=== PATIENT | male | born 1980 | race Caucasian/White ===

== ENCOUNTER 2017-12-15 03:30 | Emergency (ER) | payer SELFPAY ==
[2017-12-15] MEDS ORDERED: PROVENTIL IH ONE (03:54)
--- NOTE | 2017-12-15 06:15 | Emergency Department Report ---
HPI - General Chief Complaint: Adult Asthma Time Seen by Provider: 12/15/17 06:06 - [facility] HPI: Room 19 The patient is 37-year-old male presenting with a chief complaint of asthma exacerbation. Patient states around midnight developed wheezing and shortness of breath consistent with his asthma. Patient missed her cough is productive of clear sputum. Patient states she was administered nebulized by EMS and once here in the ED and is currently asymptomatic. Patient denies any other complaints Location: Lungs Duration: Constant since midnight Quality: Feels like asthma Severity: Moderate Modifying factors: [see above] Context: [see above] Mode of transportation: [not driving] ED Past Medical Hx - Past Medical History Previous Medical History?: Yes Hx Asthma: Yes - Surgical History Past Surgical History?: No - Family History Family history: no significant - Social History Smoking Status: Current Every Day Smoker (1/2 pack per day) Substance Use Type: None (denies illicit drug use), Alcohol (occasional) - Medications Home Medications: Home Medications Medication Instructions Recorded Confirmed Last Taken Type ALBUTEROL Inhaler (OR & NICU) 2 puff IH QID PRN #1 inhalation 12/15/17 Unknown Rx [Proair] Prednisone [predniSONE 10 mg 10 mg PO .TAPER #1 tab.ds.pk 12/15/17 Unknown Rx (6-Day Pack, 21 Tabs)] ED Review of Systems ROS: Stated complaint: RYAN Other details as noted in HPI Constitutional: no symptoms reported Eyes: denies: eye pain ENT: denies: throat pain Respiratory: cough, shortness of breath, wheezing Cardiovascular: denies: chest pain Endocrine: no symptoms reported Gastrointestinal: denies: abdominal pain Genitourinary: denies: dysuria Musculoskeletal: denies: back pain Neurological: denies: headache Physical Exam - Physical Exam Vital Signs: Vital Signs 12/15/17 12/15/17 03:44 04:06 Temperature 97.9 F Pulse Rate 102 H Pulse Rate [ 102 H Anterior Bilateral Throughout] Respiratory 18 Rate Respiratory 19 Rate [Anterior Bilateral Throughout] Blood Pressure 124/84 O2 Sat by Pulse 99 Oximetry Physical Exam: GENERAL: The patient is well-developed well-nourished male sitting on stretcher not appearing to be in acute distress. [] HEENT: Normocephalic. Atraumatic. Extraocular motions are intact. Patient has moist mucous membranes. NECK: Supple. Trachea midline CHEST/LUNGS: Clear to auscultation. There is no respiratory distress noted. HEART/CARDIOVASCULAR: Regular. There is no tachycardia. There is no gallop rub or murmur. ABDOMEN: Abdomen is soft, nontender. Patient has normal bowel sounds. There is no abdominal distention. SKIN: There is no rash. There is no edema. There is no diaphoresis. NEURO: The patient is awake, alert, and oriented. The patient is cooperative. The patient has normal speech MUSCULOSKELETAL:There is no evidence of acute injury. ED Course Vital Signs 12/15/17 12/15/17 03:44 04:06 Temperature 97.9 F Pulse Rate 102 H Pulse Rate [ 102 H Anterior Bilateral Throughout] Respiratory 18 Rate Respiratory 19 Rate [Anterior Bilateral Throughout] Blood Pressure 124/84 O2 Sat by Pulse 99 Oximetry ED Medical Decision Making - Differential Diagnosis acute asthma exacerbation Critical care attestation.: If time is entered above; I have spent that time in minutes in the direct care of this critically ill patient, excluding procedure time. ED Disposition Clinical Impression: Acute asthma exacerbation, Shortness of breath Disposition: DC-01 TO HOME OR SELFCARE Is pt being admited?: No Does the pt Need Aspirin: No Condition: Stable Instructions: Asthma (ED) Additional Instructions: Return to the emergency department immediately should you develop worsening symptoms, fever, inability to tolerate food or liquid or any other concerns. Prescriptions: ALBUTEROL Inhaler (OR & NICU) [Proair] 2 puff IH QID PRN #1 inhalation PRN Reason: Shortness Of Breath Prednisone [predniSONE 10 mg (6-Day Pack, 21 Tabs)] 10 mg PO .TAPER #1 tab.ds.pk Referrals: PRIMARY CARE, [Primary Care Provider] - 3-5 Days THEE REICH MD [Staff Physician] - 3-5 Days (Dr. Reich is a bicycle assembler. Please follow up with him for further evaluation) Time of Disposition: 06:12
[2017-12-15 06:40] VITALS: BP 135/85
== END 2017-12-15 06:28 | disposition home or self-care (01) ==
LOC: ED 03:30
DX: J45.21 Mild intermittent asthma with (acute) exacerbation (principal); F17.200 Nicotine dependence, unspecified, uncomplicated
CPT/HCPCS: 94640; 99282

== ENCOUNTER 2021-03-13 23:08 | Emergency (ER) | payer SELFPAY ==
[2021-03-13] MEDS ORDERED: ALBUTEROL 2.5 MG/3 ML NEBU IH ONE (23:18)
[2021-03-13] MEDS ORDERED: methylPREDNISolone Sod Succinate 125 MG/2 ML INJ IV ONE (23:18)
[2021-03-13] MEDS ORDERED: IPRATROPIUM 0.02% NEBU 2.5 ML IH ONE (23:18)
[2021-03-13 23:51] LABS: Basophils # (Auto) 0.1 K/mm3 (0.0-0.1); Basophils % (Auto) 0.7 % (0.0-1.8); Eosinophils # (Auto) 1.1 K/mm3 (0.0-0.4); Eosinophils % (Auto) 13.9 % (0.0-4.3); Hematocrit 42.7 % (35.5-45.6); Hemoglobin 14.1 gm/dl (11.8-15.2); Lymphocytes # (Auto) 1.1 K/mm3 (1.2-5.4); Lymphocytes % (Auto) 13.7 % (13.4-35.0); Mean Corpuscular HGB Conc 33 % (32-34); Mean Corpuscular Volume 87 fl (84-94); Monocytes # (Auto) 0.7 K/mm3 (0.0-0.8); Monocytes % (Auto) 8.6 % (0.0-7.3); Platelet Count 279 K/mm3 (140-440)
[2021-03-14 00:13] LABS: Albumin 4.6 g/dL (3.9-5); Calcium 9.6 mg/dL (8.4-10.2)
--- NOTE | 2021-03-14 01:28 | XRay Report ---
CHEST 1 VIEW 03/14/2021 12:48 AM INDICATION / CLINICAL INFORMATION: Cough, dyspnea. COMPARISON: None available. FINDINGS: SUPPORT DEVICES: None. HEART / MEDIASTINUM: No significant abnormality. LUNGS / PLEURA: No significant pulmonary or pleural abnormality. No pneumothorax. Increased lucencies in bilateral lung bases consistent with bullous disease. ADDITIONAL FINDINGS: No significant additional findings. IMPRESSION: 1. No acute cardiopulmonary abnormality. Bullous disease within the bilateral lung apices. Signer Name: Melvin Vasquez DO Signed: 03/14/2021 1:23 AM Workstation Name: [id number]
--- NOTE | 2021-03-14 02:00 | Emergency Department Report ---
- General Chief Complaint: Adult Asthma Stated Complaint: ASTHMA Source: patient Mode of arrival: Ambulatory Limitations: No Limitations - History of Present Illness Initial Comments: Patient is a 41 yo AA male with a history of asthma and heavy tobacco abuse who presented to the ED with c/o acute onset persistent nasal and sinus congestion, dry cough, wheezing, shortness of breath for the last 1 week despite using his regular albuterol nebulizers at home. The also stated that he still smokes cigarettes and trying very hard to quit. The stated that his symptoms are similar to his chronic asthma attacks. The also stated that prior to arrival in the ED his symptoms got worse. The denies fever, chills, nausea, vomiting, diarrhea, chest pain, abdominal pain, dizziness and syncope or sore throat. MD Complaint: cough, rhinorrhea, nasal congestion, sinus pain, other (Shortness of breath) -: Sudden, week(s) (1) Severity: severe Severity scale (0 -10): 8 Quality: dull, aching Consistency: constant Improves With: nothing Worsens With: nothing Associated Symptoms: denies other symptoms, cough, shortness of breath. denies: chills, myalgias, diaphoresis, headache, rhinorrhea, nasal congestion, sore throat, stiff neck, chest pain, abdominal pain, vomiting, diarrhea, rash, right sweats, weight loss, epistaxis, hoarseness, ear pain Treatments Prior to Arrival: none - Related Data Previous Rx's Medication Instructions Recorded Last Taken Type Albuterol Mdi (or & Nicu Only) 2 puff IH QID PRN #1 inhalation 12/15/17 Unknown Rx [Proair] Prednisone [predniSONE 10 mg 10 mg PO .TAPER #1 tab.ds.pk 12/15/17 Unknown Rx (6-Day Pack, 21 Tabs)] Albuterol Sulfate [Proventil Hfa] 2 puff IH Q6H PRN #1 hfa.aer.ad 03/14/21 Unknown Rx Azithromycin [Zithromax Z-SHELIA] 250 mg PO DAILY #6 tablet 03/14/21 Unknown Rx Benzonatate [Tessalon Perles] 100 mg PO Q8HR #30 capsule 03/14/21 Unknown Rx Montelukast [Singulair] 10 mg PO QPM #30 tablet 03/14/21 Unknown Rx Prednisone [predniSONE 10 mg 10 mg PO .TAPER #1 tab.ds.pk 03/14/21 Unknown Rx (6-Day Pack, 21 Tabs)] Allergies Allergy/AdvReac Type Severity Reaction Status Date / Time No Known Allergies Allergy Verified 12/15/17 06:12 ED Review of Systems ROS: Stated complaint: ASTHMA Other details as noted in HPI Constitutional: malaise, weakness. denies: chills, fever Eyes: denies: eye pain, eye discharge, vision change ENT: congestion. denies: ear pain, throat pain Respiratory: cough, shortness of breath, wheezing Cardiovascular: denies: chest pain, palpitations Endocrine: no symptoms reported Gastrointestinal: denies: abdominal pain, nausea, vomiting, diarrhea Genitourinary: denies: urgency, dysuria Musculoskeletal: denies: back pain, joint swelling, arthralgia Skin: denies: rash, lesions Neurological: denies: headache, weakness, paresthesias Psychiatric: denies: anxiety, depression Hematological/Lymphatic: denies: easy bleeding, easy bruising ED Past Medical Hx - Past Medical History Previous Medical History?: Yes Hx Asthma: Yes - Surgical History Past Surgical History?: No - Social History Smoking Status: Current Every Day Smoker (1/2 pack per day) Substance Use Type: None (denies illicit drug use), Alcohol (occasional) - Medications Home Medications: Home Medications Medication Instructions Recorded Confirmed Last Taken Type Albuterol Mdi (or & Nicu Only) 2 puff IH QID PRN #1 inhalation 12/15/17 Unknown Rx [Proair] Prednisone [predniSONE 10 mg 10 mg PO .TAPER #1 tab.ds.pk 12/15/17 Unknown Rx (6-Day Pack, 21 Tabs)] Albuterol Sulfate [Proventil Hfa] 2 puff IH Q6H PRN #1 hfa.aer.ad 03/14/21 Unknown Rx Azithromycin [Zithromax Z-SHELIA] 250 mg PO DAILY #6 tablet 03/14/21 Unknown Rx Benzonatate [Tessalon Perles] 100 mg PO Q8HR #30 capsule 03/14/21 Unknown Rx Montelukast [Singulair] 10 mg PO QPM #30 tablet 03/14/21 Unknown Rx Prednisone [predniSONE 10 mg 10 mg PO .TAPER #1 tab.ds.pk 03/14/21 Unknown Rx (6-Day Pack, 21 Tabs)] ED Physical Exam - General Limitations: No Limitations General appearance: alert, in no apparent distress, anxious - Head Head exam: Present: atraumatic, normocephalic, normal inspection - Eye Eye exam: Present: normal appearance, PERRL, EOMI - ENT ENT exam: Present: normal orophraynx, mucous membranes moist, TM's normal bilaterally, normal external ear exam, other (Grossly congested nasal passages) - Neck Neck exam: Present: normal inspection, full ROM. Absent: tenderness, lymphadenopathy, thyromegaly - Respiratory Respiratory exam: Present: respiratory distress (Mild respiratory distress, use of accessory muscles of respiration), wheezes (Diffuse coarse wheezes thro ughout), accessory muscle use. Absent: rales, rhonchi, chest wall tenderness, decreased breath sounds, prolonged expiratory - Cardiovascular Cardiovascular Exam: Present: normal rhythm, tachycardia, normal heart sounds. Absent: systolic murmur, diastolic murmur, rubs, gallop - GI/Abdominal GI/Abdominal exam: Present: soft, normal bowel sounds. Absent: tenderness, guarding, rebound, hyperactive bowel sounds, hypoactive bowel sounds, organomegaly - Extremities Exam Extremities exam: Present: normal inspection, full ROM, normal capillary refill - Back Exam Back exam: Present: normal inspection, full ROM. Absent: tenderness, CVA tenderness (R), CVA tenderness (L), muscle spasm, paraspinal tenderness, vertebral tenderness - Neurological Exam Neurological exam: Present: alert, oriented X3, CN II-XII intact, normal gait, reflexes normal - Psychiatric Psychiatric exam: Present: normal affect, normal mood, anxious - Skin Skin exam: Present: warm, dry, intact, normal color. Absent: rash ED Course Vital Signs 03/13/21 03/13/21 03/14/21 23:22 23:32 03:00 Temperature 98.3 F Pulse Rate 143 H 135 H Pulse Rate [ 130 H Bilateral] Respiratory 18 20 Rate Respiratory 26 H Rate [Bilateral ] Blood Pressure 145/84 106/67 [Right] O2 Sat by Pulse 96 98 Oximetry 03/14/21 03/14/21 04:00 05:55 Temperature Pulse Rate 130 H 118 H Pulse Rate [ Bilateral] Respiratory 20 18 Rate Respiratory Rate [Bilateral ] Blood Pressure [Right] O2 Sat by Pulse 97 97 Oximetry ED Medical Decision Making - Lab Data Result diagrams: 03/13/21 23:38 03/13/21 23:38 - Radiology Data Radiology results: report reviewed, image reviewed [facility] [address] [place] [address] XRay Report Signed Patient: BONI ZIMMERMAN MR#: [id number] : 1980 Acct:[id number] Age/Sex: 41 / M ADM Date: 03/13/21 Loc: ED Attending Dr: Ordering Physician: FRANKLIN CROWLEY Date of Service: 03/13/21 Procedure(s): XR chest 1V ap Accession Number(s): [id number] cc: FRANKLIN CROWLEY Fluoro Time In Minutes: CHEST 1 VIEW 03/14/2021 12:48 AM INDICATION / CLINICAL INFORMATION: Cough, dyspnea. COMPARISON: None available. FINDINGS: SUPPORT DEVICES: None. HEART / MEDIASTINUM: No significant abnormality. LUNGS / PLEURA: No significant pulmonary or pleural abnormality. No pneumothorax. Increased lucencies in bilateral lung bases consistent with bullous disease. ADDITIONAL FINDINGS: No significant additional findings. IMPRESSION: 1. No acute cardiopulmonary abnormality. Bullous disease within the bilateral lung apices. Signer Name: Melvin Vasquez DO Signed: 03/14/2021 1:23 AM Workstation Name: [id number] Transcribed By: ALE Dictated By: MELVIN VASQUEZ DO Electronically Authenticated By: MELVIN VASQUEZ DO Signed Date/Time: 03/14/21122 DD/ 1 TD/TT: - Differential Diagnosis asthma; pneumonia; bronchitis; Covid-19; Influenza; URI Critical care attestation.: If time is entered above; I have spent that time in minutes in the direct care of this critically ill patient, excluding procedure time. ED Disposition Clinical Impression: Acute bronchitis with asthma with acute exacerbation, Shortness of breath Disposition: 01 HOME / SELF CARE / HOMELESS Is pt being admited?: No Does the pt Need Aspirin: No Condition: Stable Instructions: Shortness of Breath, Adult, [id number], Cough, Adult, [id number], Acute Bronchitis, Adult, Rhcv-fp-Ijfw, Asthma, Adult, Qbfp-az-[id number] Additional Instructions: Chest x-ray showed no acute cardiopulmonary abnormalities or pneumonitis. Lab test results were reviewed and are all nonactionable. Therefore take medication with food, drink plenty fluids and follow-up with your primary care physician in 5 to 7 days for reevaluation. Return to the ED immediately if symptoms get worse Prescriptions: Prednisone [predniSONE 10 mg (6-Day Pack, 21 Tabs)] 10 mg PO .TAPER #1 tab.ds.pk Albuterol Sulfate [Proventil Hfa] 2 puff IH Q6H PRN #1 hfa.aer.ad PRN Reason: Shortness Of Breath Montelukast [Singulair] 10 mg PO QPM #30 tablet Benzonatate [Tessalon Perles] 100 mg PO Q8HR #30 capsule Azithromycin [Zithromax Z-SHELIA] 250 mg PO DAILY #6 tablet Referrals: [facility] [Provider Group] - 3-5 Days Forms: Work/School Release Form(ED) Time of Disposition: 01:58 Print Language: SAMOAN
[2021-03-14] MEDS ORDERED: SODIUM CHLORIDE 0.9% 1000 ML 1,000 ML IV ONE ×2 (02:06)
[2021-03-14] MEDS ORDERED: MAGNESIUM SULFATE 2 GM/50 ML BAG IV ONE (03:03)
[2021-03-14] MEDS ORDERED: diazePAM 10 MG/2 ML SYRINGE IV ONE (03:05)
[2021-03-14 05:30] VITALS: BP 106/67
== END 2021-03-14 05:55 | disposition home or self-care (01) ==
LOC: ED 23:08
DX: J20.9 Acute bronchitis, unspecified (principal); J45.909 Unspecified asthma, uncomplicated; F17.200 Nicotine dependence, unspecified, uncomplicated
CPT/HCPCS: 36415; 71045; 80053; 85025; 94644; 96365; 96375; 99284; J2930; J3360; J3475; J7030; Q0162

== ENCOUNTER 2021-09-08 17:21 | Emergency (ER) | payer SELFPAY ==
[2021-09-08 17:24] VITALS: BP 119/82
--- NOTE | 2021-09-08 20:18 | Emergency Department Report ---
ED Asthma HPI - General Chief Complaint: Adult Asthma Stated Complaint: ASTHMA EXACERBATION Time Seen by Provider: 09/08/21 20:05 Source: patient, EMS Mode of arrival: Stretcher Limitations: No Limitations - History of Present Illness Initial Comments: Patient 41-year-old Afro-[place]namese male with a history of asthma who presents for wheezing shortness of breath x2 days. Patient states he used the last of his albuterol inhaler today. Symptoms are now rated at 1/10. Patient alert oriented x3 and speaking in full sentences at this time. Respirations are even and nonlabored at this time. Patient denies other history denies smoking. As are exacerbated by environmental exposure. Symptoms are relieved by nothing tried. Patient denies other complaint. MD Complaint: wheezing - Related Data Previous Rx's Medication Instructions Recorded Last Taken Type Azithromycin [Zithromax Z-SHELIA] 250 mg PO DAILY #6 tablet 03/14/21 Unknown Rx Prednisone [predniSONE 10 mg 10 mg PO .TAPER #1 tab.ds.pk 03/14/21 Unknown Rx (6-Day Pack, 21 Tabs)] Albuterol Mdi (or & Nicu Only) 2 puff IH QID PRN #1 inhalation 06/23/21 Unknown Rx [ProAir HFA Inhaler] Benzonatate [Tessalon Perles] 100 mg PO Q8HR #30 capsule 06/23/21 Unknown Rx Prednisone [predniSONE 10 mg 10 mg PO .TAPER #1 tab.ds.pk 06/23/21 Unknown Rx (6-Day Pack, 21 Tabs)] ALBUTEROL NEB's [Proventil 0.083% 2.5 mg IH TID PRN #25 neb 09/08/21 Unknown Rx NEBS] Albuterol Sulfate [Proventil Hfa] 2 puff IH Q6H PRN #1 hfa.aer.ad 09/08/21 Unknown Rx Montelukast [Singulair] 10 mg PO QPM #30 tablet 09/08/21 Unknown Rx predniSONE [Deltasone] 40 mg PO QDAY 5 Days #10 tab 09/08/21 Unknown Rx Allergies Allergy/AdvReac Type Severity Reaction Status Date / Time No Known Allergies Allergy Verified 09/08/21 17:24 ED Review of Systems ROS: Stated complaint: ASTHMA EXACERBATION Other details as noted in HPI Constitutional: denies: chills, fever Eyes: denies: eye pain, eye discharge, vision change ENT: congestion. denies: ear pain, throat pain Respiratory: cough, shortness of breath, wheezing Cardiovascular: denies: chest pain, palpitations Endocrine: no symptoms reported Gastrointestinal: denies: abdominal pain, nausea, vomiting, diarrhea Genitourinary: denies: urgency, dysuria Musculoskeletal: denies: back pain, joint swelling, arthralgia Skin: denies: rash, lesions Neurological: denies: headache, weakness, paresthesias, vertigo Psychiatric: denies: anxiety, depression Hematological/Lymphatic: denies: easy bleeding, easy bruising ED Past Medical Hx - Past Medical History Hx Asthma: Yes - Social History Smoking Status: Current Every Day Smoker (1/2 pack per day) Substance Use Type: None (denies illicit drug use), Alcohol (occasional) - Medications Home Medications: Home Medications Medication Instructions Recorded Confirmed Last Taken Type Azithromycin [Zithromax Z-SHELIA] 250 mg PO DAILY #6 tablet 03/14/21 Unknown Rx Prednisone [predniSONE 10 mg 10 mg PO .TAPER #1 tab.ds.pk 03/14/21 Unknown Rx (6-Day Pack, 21 Tabs)] Albuterol Mdi (or & Nicu Only) 2 puff IH QID PRN #1 inhalation 06/23/21 Unknown Rx [ProAir HFA Inhaler] Benzonatate [Tessalon Perles] 100 mg PO Q8HR #30 capsule 06/23/21 Unknown Rx Prednisone [predniSONE 10 mg 10 mg PO .TAPER #1 tab.ds.pk 06/23/21 Unknown Rx (6-Day Pack, 21 Tabs)] ALBUTEROL NEB's [Proventil 0.083% 2.5 mg IH TID PRN #25 neb 09/08/21 Unknown Rx NEBS] Albuterol Sulfate [Proventil Hfa] 2 puff IH Q6H PRN #1 hfa.aer.ad 09/08/21 Unknown Rx Montelukast [Singulair] 10 mg PO QPM #30 tablet 09/08/21 Unknown Rx predniSONE [Deltasone] 40 mg PO QDAY 5 Days #10 tab 09/08/21 Unknown Rx ED Physical Exam - General Limitations: No Limitations General appearance: alert, in no apparent distress - Head Head exam: Present: normocephalic, normal inspection - Eye Eye exam: Present: EOMI Pupils: Present: normal accommodation - ENT ENT exam: Present: normal orophraynx, mucous membranes moist - Neck Neck exam: Present: normal inspection, full ROM. Absent: tenderness, lymphadenopathy - Respiratory Respiratory exam: Present: normal lung sounds bilaterally. Absent: respiratory distress, wheezes, stridor, chest wall tenderness, prolonged expiratory - Cardiovascular Cardiovascular Exam: Present: regular rate, normal rhythm, normal heart sounds. Absent: systolic murmur, diastolic murmur, rubs, gallop - GI/Abdominal GI/Abdominal exam: Present: soft, normal bowel sounds. Absent: distended, tenderness - Rectal Rectal exam: Present: deferred - Extremities Exam Extremities exam: Present: normal inspection, full ROM, normal capillary refill. Absent: tenderness - Back Exam Back exam: Present: normal inspection, full ROM. Absent: CVA tenderness (R), CVA tenderness (L) - Neurological Exam Neurological exam: Present: alert, oriented X3, CN II-XII intact, normal gait - Psychiatric Psychiatric exam: Present: normal affect, normal mood - Skin Skin exam: Present: warm, dry, intact, normal color. Absent: rash ED Course Vital Signs 09/08/21 17:22 Pulse Rate 95 H Blood Pressure 119/82 [Left] O2 Sat by Pulse 96 Oximetry ED Medical Decision Making - Medical Decision Making Wheezing is resolved at this time patient has ambulated from room to bathroom and back to his room without increased shortness of breath. Lung sounds are clear throughout at this time. Airways patent respirations are even and nonlabored. Plan refill medication as requested, follow-up primary care doctor in 2 to 3 days. Patient verbalized agreement understanding discharge plan. Patient DC'd home in stable condition at this time. Critical care attestation.: If time is entered above; I have spent that time in minutes in the direct care of this critically ill patient, excluding procedure time. ED Disposition Clinical Impression: Asthma Qualifiers: Asthma severity: moderate Asthma persistence: persistent Asthma complication type: uncomplicated Qualified Code(s): J45.40 - Moderate persistent asthma, uncomplicated Disposition: 01 HOME / SELF CARE / HOMELESS Is pt being admited?: No Does the pt Need Aspirin: No Condition: Stable Instructions: Asthma (ED), Asthma, Adult, Asthma Attack Prevention, Adult Prescriptions: predniSONE [Deltasone] 40 mg PO QDAY 5 Days #10 tab ALBUTEROL NEB's [Proventil 0.083% NEBS] 2.5 mg IH TID PRN #25 neb PRN Reason: Wheezing Albuterol Sulfate [Proventil Hfa] 2 puff IH Q6H PRN #1 hfa.aer.ad PRN Reason: Shortness Of Breath Montelukast [Singulair] 10 mg PO QPM #30 tablet Referrals: RAMIRO PANDYA MD [Staff Physician] - 3-5 Days Forms: Work/School Release Form(ED) Time of Disposition: 20:18
== END 2021-09-08 20:39 | disposition home or self-care (01) ==
LOC: ED 17:21
DX: J45.909 Unspecified asthma, uncomplicated (principal); F17.200 Nicotine dependence, unspecified, uncomplicated
CPT/HCPCS: 99283